=== PATIENT | female | born 1985 | race Caucasian/White ===

== ENCOUNTER 2018-01-25 05:38 | Inpatient (IN) | payer OTHER ==
[2018-01-25] VITALS (97 sets, daily range): BP systolic 99–150; BP diastolic 51–114; PULSE 53–145; RESP 18–20; TEMP 98.3–98.4; O2SAT 97
[~2018-01-25] VITALS: Ht 167.6 cm; Wt 82.0 kg
[~2018-01-25 05:38] MED LIST: IBUP600 PO; OXYC1SOL5 PO
[2018-01-25] MEDS ORDERED: OXYTOCIN 30 UNITS/NS 500ML PREMIX IV PRN (06:15)
[2018-01-25] MEDS ORDERED: OXYTOCIN 30 UNITS 500ML PREMIX IV ONE (06:30)
[2018-01-25] MEDS ORDERED: CITRIC ACID-SODIUM CITRATE LIQ 30 ML UDC PO SCH (06:30)
[2018-01-25] MEDS: LACTATED RINGER'S 1000 ML IV SCH ×2 (06:30→14:30)
[2018-01-25] MEDS ORDERED: LACTATED RINGER'S 1000 ML BOLUS IV PRN (06:30)
[2018-01-25] MEDS ORDERED: ONDANSETRON HCL 4 MG/2 ML VIAL IV PUSH PRN (06:30)
[2018-01-25] MEDS ORDERED: NS 1000 ML IV PRN (06:30)
[2018-01-25] MEDS ORDERED: NS 500 ML BOLUS IV PRN (06:30)
[2018-01-25] MEDS ORDERED: MINERAL OIL 10 ML VIAL TOPICAL PRN (06:30)
[2018-01-25] MEDS ORDERED: LIDOCAINE HCL 1% 50 ML VIAL I-DERMAL PRN (06:30)
[2018-01-25] MEDS ORDERED: LIDOCAINE HCL 1% 50 ML VIAL INFIL PRN (06:30)
[2018-01-25 07:39] LABS: AUTOMATED NEUTROPHIL # 6.3 TH/MM3 (1.8-7.7); BASOPHIL # 0.1 TH/MM3 (0-0.2); BASOPHIL % 0.6 % (0.0-2.0); EOSINOPHIL # 0.1 TH/MM3 (0-0.4); EOSINOPHIL % 0.8 % (0.0-4.0); HEMOGLOBIN 11.4 GM/DL (11.6-15.3); LYMPH % 25.7 % (9.0-44.0); LYMPHOCYTE # 2.4 TH/MM3 (1.0-4.8); MEAN CELL VOLUME 82.5 FL (80.0-100.0); MEAN CORPUSCULAR HEMOGLOBIN 27.7 PG (27.0-34.0); MEAN CORPUSCULAR HGB CONC 33.6 % (32.0-36.0); MEAN PLATELET VOLUME 9.5 FL (7.0-11.0); MONO % 6.5 % (0.0-8.0); MONOCYTE # 0.6 TH/MM3 (0-0.9); NEUT % 66.4 % (16.0-70.0); PLATELET COUNT 232 TH/MM3 (150-450); RED BLOOD COUNT 4.12 MIL/MM3 (4.00-5.30); RED CELL DISTRIBUTION WIDTH 14.4 % (11.6-17.2); WHITE BLOOD COUNT 9.5 TH/MM3 (4.0-11.0)
[2018-01-25 07:40] LABS: BILIRUBIN, URINE NEG (NEG); BLOOD, URINE NEG (NEG); GLUCOSE,URINE NEG (NEG); KETONE, URINE NEG (NEG); NITRITE,URINE NEG (NEG); PH, URINE 6.5 (5.0-8.5); SQUAMOUS EPITHELIAL CELL URINE 3 /hpf (0-5); URINE COLOR YELLOW (YELLW/STRAW); URINE LEUKOCYTE ESTERASE NEG (NEG)
[2018-01-25] MEDS ORDERED: fentaNYL 2MCG-BUPIV 0.125% INJ 100 ML ONE (10:31)
[2018-01-25] MEDS ORDERED: ePHEDrine/NS 25 MG/5 ML SYRINGE ONE (10:32)
[2018-01-25] MEDS ORDERED: DO NOT ADMINISTER ANTICOAGULANTS PRN (11:45)
[2018-01-25] MEDS ORDERED: NO SYSTEM NARCOTICS PRN (11:45)
[2018-01-25] MEDS ORDERED: ePHEDrine/NS 25 MG/5 ML SYRINGE IV PUSH PRN (11:45)
[2018-01-25] MEDS ORDERED: fentaNYL 2MCG-BUPIV 0.125% 100 ML EPIDURAL SCH (11:45)
[2018-01-25] MEDS ORDERED: BENZOCAINE 20% TOPICAL SPRAY 60 ML CAN TOPICAL PRN (15:45)
[2018-01-25] MEDS ORDERED: OXYTOCIN 30 UNITS-500ML PREMIX 500 ML IV SCH (15:45)
[2018-01-25] MEDS ORDERED: ONDANSETRON ODT 4 MG TAB PO PRN (15:45)
[2018-01-25] MEDS ORDERED: ACETAMINOPHEN 325 MG TAB PO PRN (15:45)
[2018-01-25] MEDS ORDERED: SODIUM CHLORIDE 0.9% FLUSH 10 ML FLUSH IV FLUSH PRN (15:45)
[2018-01-25] MEDS ORDERED: OXYTOCIN 10 UNIT/ML AMP XX PRN (15:45)
[2018-01-25] MEDS ORDERED: DOCUSATE SODIUM 50 MG/SENNA 8.6 MG TAB PO PRN (15:45)
[2018-01-25] MEDS ORDERED: ALUMINUM/MAGNESIUM/SIMETH 30 ML CUP PO PRN (15:45)
[2018-01-25] MEDS ORDERED: ZOLPIDEM TARTRATE 5 MG TAB PO PRN (15:45)
[2018-01-25] MEDS ORDERED: OXYTOCIN 30 UNITS-500ML PREMIX 500 ML IV ONE (15:45)
[2018-01-25] MEDS ORDERED: WITCH HAZEL 50%/GLYCERIN 12.5% 40 PAD JAR TOPICAL PRN (15:45)
[2018-01-25] MEDS ORDERED: oxyCODONE/ACETAMINOPHEN 5 MG/325 MG TAB PO PRN ×2 (15:45)
[2018-01-25] MEDS ORDERED: MEASLES, MUMPS, RUBELLA VACCINE 0.5 ML VIAL SQ ONE (16:00)
[2018-01-25] MEDS ORDERED: DIPHTH/TETANUS/ACEL PERTUSSIS (BOOSTER) 0.5 ML VIAL/PFS IM ONE (16:00)
[2018-01-25] MEDS: IBUPROFEN 800 MG TAB PO PRN (18:20)
[2018-01-25] MEDS ORDERED: SODIUM CHLORIDE 0.9% FLUSH 10 ML FLUSH IV FLUSH SCH (21:00)
--- NOTE | 2018-01-25 21:04 | PD.OB.DELI ---
Weeks gestation: 39 Gest age assessed date: Jan 25, 2018 Gest age assessed time: 05:30 Pt started active labor?: No Medical induction of labor?: Yes Medical induction start date: Jan 25, 2018 Medical induction start time: 05:30 Artificial rupture of membrane: Yes Artificial ROM date: Jan 25, 2018 Artifical ROM time: 08:52 Anesthesia: Epidural Episiotomy: None Vaginal Delivery: Normal Presentation: Occiput anterior Nuchal Cord: None Delayed cord clamping (45 sec): Yes : Male Delivery date: Jan 25, 2018 Delivery time: 15:28 One Minute : 9 Five Minute : 9 Weight: 6-5 Placenta: Spontaneous delivery, Intact, 3 vessel cord Repair: Chromic running Estimated blood loss: 300 ml Additional Information b/l periurethral lacerations repaired with 3-0 chromic in usual fashion Shahana Bella MD Jan 25, 2018 21:04
[2018-01-26] MEDS: IBUPROFEN 800 MG TAB PO PRN ×2 (07:28→16:22)
[2018-01-26 08:00] VITALS: BP 106/64; PULSE 69; RESP 20; TEMP 98.1; O2SAT 99
[2018-01-26] MEDS: LACTATED RINGER'S 1000 ML IV SCH (08:24)
[2018-01-26] MEDS ORDERED: INFLUENZA VIRUS VACCINE (QUADRIVALENT) 0.5 ML SYR IM ONE (10:00)
[2018-01-26 21:46] VITALS: BP 105/61; PULSE 66; RESP 18; TEMP 98.1
--- NOTE | 2018-01-26 22:10 | HHI.OB ---
Subjective Post Day: 1 Remarks pain controlled, mod lochia, sushila po, +void/flatus Objective Vitals/I&O Vital Signs Date Time Temp Pulse Resp B/P (MAP) Pulse Ox O2 Delivery O2 Flow Rate FiO2 01/26/18 21:46 98.1 66 18 105/61 (76) 01/26/18 08:00 69 20 106/64 (78) 01/26/18 08:00 98.1 99 Objective Remarks GENERAL: Well-nourished, well-developed patient. CARDIOVASCULAR: Regular rate and rhythm without murmurs, gallops, or rubs. RESPIRATORY: Breath sounds equal bilaterally. No accessory muscle use. ABDOMEN/GI: Abdomen soft, non-tender. Fundus: Firm, non-tender at umbilicus. GENITOURINARY: Light to moderate bleeding. EXTREMITIES: No cyanosis or edema, non-tender, without signs of DVT. Medications and IVs Current Medications Medications (Trade) Dose Ordered Sig/Andre Route Start Time Stop Time Status Last Admin Oxytocin 500 ml @ 0 mls/hr TITRATE PRN IV 01/25/18 06:15 01/25/18 06:30 Lactated Ringer's 1,000 ml @ 125 mls/hr Q8H IV 01/25/18 06:30 01/25/18 14:30 Lactated Ringer's 1,000 ml @ 3,000 mls/hr BOLUS PRN IV 01/25/18 06:30 Sodium Chloride 500 ml @ 1,000 mls/hr BOLUS PRN IV 01/25/18 06:30 Sodium Chloride 1,000 ml @ 100 mls/hr Q10H PRN IV 01/25/18 06:30 (Bicitra Liq) 30 ml STOGY MAKER PO 01/25/18 06:30 01/28/18 06:29 (fentaNYL INJ) 50 mcg Q1H PRN IV PUSH 01/25/18 06:30 (fentaNYL INJ) 100 mcg Q1H PRN IV PUSH 01/25/18 06:30 (Muri-Lube Oil) 10 ml UNSCH PRN TOPICAL 01/25/18 06:30 Fentanyl/ Bupivacaine HCl 100 ml @ 0 mls/hr TITRATE EPIDURAL 01/25/18 11:45 (NS Flush) 2 ml BID IV FLUSH 01/25/18 21:00 (NS Flush) 2 ml UNSCH PRN IV FLUSH 01/25/18 15:45 (Tylenol) 650 mg Q4H PRN PO 01/25/18 15:45 (Motrin) 800 mg Q8H PRN PO 01/25/18 15:45 01/26/18 16:22 (Percocet 5-325 Mg) 1 tab Q4H PRN PO 01/25/18 15:45 (Percocet 5-325 Mg) 2 tab Q4H PRN PO 01/25/18 15:45 (Americaine 20% Top Spr) 1 spray Q4H PRN TOPICAL 01/25/18 15:45 01/25/18 21:00 (Tucks Pads) 1 applic QID PRN TOPICAL 01/25/18 15:45 (Dot-Colace) 2 tab Q12H PRN PO 01/25/18 15:45 (Ambien) 5 mg HS PRN PO 01/25/18 15:45 (Mag-Al Plus Susp Liq) 15 ml Q8H PRN PO 01/25/18 15:45 (Zofran Odt) 4 mg Q6H PRN PO 01/25/18 15:45 Assessment/Plan Problem List: (1) Spontaneous vaginal delivery ICD Codes: O80 - Encounter for full-term uncomplicated delivery Status: Acute Plan: routine pp care Shahana Bella MD Jan 26, 2018 22:10
[2018-01-27] MEDS: IBUPROFEN 800 MG TAB PO PRN ×2 (00:46→10:39)
[2018-01-27] MEDS ORDERED: IBUP1TAB7 PO (06:16)
[2018-01-27] MEDS ORDERED: OXYC1TAB63 PO (06:16)
--- NOTE | 2018-01-27 06:19 | HHI.DS ---
Admission Date Jan 25, 2018 at 05:38 Discharge Date: Jan 27, 2018 Admitting Diagnosis IUP@Term, labor Diagnosis: Delivery Date: Jan 25, 2018 Infant: Male Hospital Course Pt presented for induction of labor. pt had . by ppd 2, pt was voiding, passing gas, and ready for d/c home Pt Condition on Discharge: Stable Discharge Disposition: Discharge Home Discharge Instructions Diet Instructions: As Tolerated, No Restrictions Additional Diet Instructions: Drink at least 8 - 16 oz bottles of water a day Activities You Can Perform: Shower Only-No Bath, Sitz Bath Activities to Avoid: Lifting/Bending, Sexual Activity Additional Activity Instruc.: No driving until off pain medications Do not lift anything heavier than your baby in an carrier Shahana Bella MD Jan 27, 2018 06:19
[2018-01-27 08:16] VITALS: BP 114/66; PULSE 63; RESP 16; TEMP 98.2
== END 2018-01-27 13:36 | disposition home or self-care (01) | DRG 775 ==
LOC: H2EA 05:38 → H1EA 17:47
PROVIDERS: ADMIT Obstetrics & Gynecology; ATTEND Obstetrics & Gynecology
PROC: 10E0XZZ Delivery of Products of Conception, External Approach (ICD-10-PCS; principal; 2018-01-25)
PROC: 0UQMXZZ Repair Vulva, External Approach (ICD-10-PCS; 2018-01-25)
PROC: 00HU33Z Insertion of Infusion Device into Spinal Canal, Percutaneous Approach (ICD-10-PCS; 2018-01-25)
PROC: 3E0R3BZ Introduction of Anesthetic Agent into Spinal Canal, Percutaneous Approach (ICD-10-PCS; 2018-01-25)
PROC: 10907ZC Drainage of Amniotic Fluid, Therapeutic from Products of Conception, Via Natural or Artificial Opening (ICD-10-PCS; 2018-01-25)
PROC: 3E033VJ Introduction of Other Hormone into Peripheral Vein, Percutaneous Approach (ICD-10-PCS; 2018-01-25)
DX: O71.82 Other specified trauma to perineum and vulva (principal); Z37.0 Single live birth; Z3A.39 39 weeks gestation of pregnancy
CPT/HCPCS: 59025; 80307; 81001; 85025; 86900; 86901; 90686; 90715; G0481; J2590; J7120; Q2038